=== PATIENT | male | born 1940 ===

== ENCOUNTER 2017-01-17 10:27 | Outpatient (CLI) | payer MEDICARE ==
[2017-01-17 12:17] LABS: Bilirubin Negative (Negative); Blood, Urine Negative (Negative); Clarity Clear (Clear); Glucose, Urine (Dipstick) Negative (Negative); Leukocyte Negative (Negative); Nitrite Negative (Negative); Protein, Urine (Dipstick) Negative (Neg-Trace); Urobilinogen 0.2 mg/dL (0.2-1.0); pH, Urine 7.5 (5.0-9.0)
[2017-01-17 12:18] LABS: Bacteria/HPF Rare-Few HPF (None Seen); Squamous Epithelial 0-3 HPF (0-3); WBC/HPF 0-3 HPF (0-3)
== END 2017-01-17 10:28 | disposition home or self-care (01) ==
LOC: NAV LABSP 10:27
PROVIDERS: ATTEND Family Medicine
DX: R41.82 Altered mental status, unspecified (principal); R45.1 Restlessness and agitation
CPT/HCPCS: 81001; 87086